=== PATIENT | male | born 1980 | race Native Hawaiian/Other Pacific Islander ===

== ENCOUNTER 2017-03-16 13:35 | Emergency (ER) | payer OTHER ==
[~2017-03-16] VITALS: Ht 195.6 cm; Wt 217.7 kg
[2017-03-16 14:45] LABS: PLATELET COUNT 191 K/uL (142-355)
[2017-03-16 14:58] LABS: SODIUM 138 mmol/L (136-145)
== END 2017-03-16 16:14 | disposition home or self-care (01) ==
LOC: ED 13:35
PROVIDERS: Specialist
DX: M79.1 Myalgia (principal); M79.604 Pain in right leg
CPT/HCPCS: 36415; 80048; 85027; 99283